=== PATIENT | male | born 1935 | race Caucasian/White ===

== ENCOUNTER 2016-11-21 12:46 | Inpatient (IN) | payer OTHER ==
[~2016-11-21] VITALS: Ht 167.6 cm; Wt 62.4 kg
--- NOTE | ~2016-11-21 | 2DMMODE ---
[facility] [place] [address] 2 D/M-MODE ECHOCARDIOGRAM Name: ARMANDARTEMIOPANDARyanILEANA REYNA Room #: 216-P [facility] IN M.R.#: [id number] Admission: 11/21/16 Attend Phys: Edenilson Weaver, Discharge: Date of : 35 Date of Service: 11/27/16 1118 Report #: [id number] THIS REPORT FOR: //name// APPROVED REPORT Study performed: 11/27/2016 08:53:00 EXAM: Comprehensive 2D, Doppler, and color-flow Echocardiogram Patient Location: Bedside Room #: 216 Blood Pressure: 134/71 mmHg HR: 78 bpm Other Information Study Quality: Excellent Indications Cardiomyopathy 2D Dimensions LVOT Diam: 24.44 (18-24mm) Aortic Valve AoV Peak Michael.: 2.63 m/s AO Peak Gr.: 27.74 mmHg LVOT Max P.97 mmHg AO Mean Gr.: 18.36 mmHg LVOT Mean P.11 mmHg LVOT Max V: 0.70 m/s AO V2 VTI: 55.02 cm LVOT Mean V: 0.50 m/s JR (VTI): 1.31 cm2 LVOT V1 VTI: 15.31 cm SV (LVOT): 71.83 mL Tricuspid Valve TR Peak Michael.: 4.27 m/s RAP Estimate: 5.00 mmHg TR Peak Gr.: 72.83 mmHg Left Ventricle The left ventricle is normal size. There is normal left ventricular wall thickness. Left ventricular ejection fraction is severely decreased. LVEF is 20-25%. Right Ventricle The right ventricle is normal size. The right ventricular systolic [facility] [address] [place] [address] 2 D/M-MODE ECHOCARDIOGRAM Name: ILEANA BERGER Room #: 216-P ADM IN .R.#: [id number] Admission: 11/21/16 Attend Phys: Edenilson Weaver, Discharge: Date of : 35 Date of Service: 11/27/16 1118 Report #: [id number] function is normal. Atria Left atrium is dilated. Right atrium is dilated. Aortic Valve The aortic valve is normal in structure. Aortic valve is calcified. moderate aortic stenosis. Mitral Valve The mitral valve is normal in structure. Tricuspid Valve The tricuspid valve is normal in structure. There is moderate tricuspid regurgitation. The right atrial pressure is estimated at 5 mmHg. There is severe pulmonary hypertension. The estimated PAP was 78 mmHg. Pulmonic Valve The pulmonary valve is normal in structure. There is no pulmonic valvular regurgitation. Great Vessels The aortic root is normal in size. IVC is normal in size and collapses >50% with inspiration. Pericardium There is no pericardial effusion. <Conclusion> The left ventricle is normal size. Left ventricular ejection fraction is severely decreased. LVEF is 20-25%. Left atrium is dilated. Right atrium is dilated. The aortic valve is normal in structure. Aortic valve is calcified. Moderate aortic stenosis. <ELECTRONICALLY SIGNED> By: Fabien Grey MD 11/27/16 1118 1118 1118 Fabien Grey MD /INF
--- NOTE | ~2016-11-21 | 2DMMODE ---
[facility] [address] [place] [address] 2 D/M-MODE ECHOCARDIOGRAM Name: ARMANDARTEMIOPANDARyanILEANA REYNA Room #: 211-P ADM IN M.R.#: [id number] Admission: 11/21/16 Attend Phys: Edenilson Weaver, Discharge: Date of : 35 Date of Service: 11/22/16 1320 Report #: [id number] THIS REPORT FOR: //name// APPROVED REPORT Study performed: 11/22/2016 08:09:50 EXAM: Comprehensive 2D, Doppler, and color-flow Echocardiogram Patient Location: Bedside Room #: 211 Blood Pressure: 131/87 mmHg HR: 103 bpm Other Information Study Quality: Excellent Indications COPD CAD Chest Pain Hypertension/HDD 2D Dimensions LVEF(%): 8.93 (>50%) IVSd: 18.43 (7-11mm) LVOT Diam: 20.00 (18-24mm) LVDd: 44.55 mm PWd: 13.95 (7-11mm) Ascending Aorta: 29.73 mm LVDs: 42.81 (25-40mm) Aortic Root: 33.07 mm Davenport's LVEF: 8.93 % Volumes Left Atrial Volume (Systole) Single Plane 4CH: 95.61 mL Single Plane 2CH: 83.48 mL Aortic Valve AoV Peak Michael.: 2.64 m/s AO Peak Gr.: 24.24 mmHg LV Max P.42 mmHg AO Mean Gr.: 18.95 mmHg LV Mean P.72 mmHg LV Max: 0.57 m/s AO V2 VTI: 455.46 mm LV Mean: 0.40 m/s JR (VTI): 0.62 cm2 LV V1 VTI: 89.24 mm AI Vmax: 3.22 m/s SV (LVOT): 28.09 mL [facility] [place] [address] 2 D/M-MODE ECHOCARDIOGRAM Name: ILEANA BERGER Room #: 211-P [facility] IN M.R.#: [id number] Admission: 11/21/16 Attend Phys: Edenilson Weaver, Discharge: Date of : 35 Date of Service: 11/22/16 1320 Report #: [id number] AI [place]: 2.90 m/s2 AI PHT: 322.60 ms Mitral Valve E/A Ratio: 2.8 MV Decel. Time: 121.82 ms MV E Max Michael.: 1.13 m/s MV A Michael.: 0.41 m/s MV PHT: 35.33 ms Pulmonary Valve PV Peak Michael.: 0.71 m/s PV Peak Gr.: 2.02 mmHg MO End Vmax: 1.19 m/s Pulmonary Vein P Vein S: 31.1 m/s P Vein D: 18.2 m/s P Vein A Dur.: 25.8 m/s PVa Duration: 73 Tricuspid Valve TR Peak Michael.: 3.76 m/s RAP Estimate: 15.00 mmHg TR Peak Gr.: 56.45 mmHg PA Pressure: 71.00 mmHg Left Ventricle Left ventricle is mildly dilated. Mild to moderate concentric left ventricular hypertrophy. Left ventricular systolic function is severely decreased. LVEF is 10-15%. Grade II - pseudonormal filling dynamics. Right Ventricle Right ventricle is moderately dilated. The right ventricular systolic function is normal. Atria Left atrium is severely dilated. Right atrium is moderately dilated. Aortic Valve Aortic valve leaflets are moderately thickened and calcified. Mild aortic regurgitation. Severe aortic stenosis. Mitral Valve There is mitral annular calcification. Mitral valve leaflets are thickened. Mild to moderate mitral regurgitation. No evidence of mitral valve stenosis. [facility] [address] [place] [address] 2 D/M-MODE ECHOCARDIOGRAM Name: ILEANA BERGER Room #: 211-P [facility] IN ..#: [id number] Admission: 11/21/16 Attend Phys: Edenilson Weaver, Discharge: Date of : 35 Date of Service: 11/22/16 1320 Report #: [id number] Tricuspid Valve The tricuspid valve is normal in structure. Severe tricuspid regurgitation. Pulmonic Valve The pulmonary valve is normal in structure. Mild to moderate pulmonic regurgitation. Great Vessels The aortic root is normal in size. The inferior vena cava is dilated with a decrease in inspiratory collapse. Pericardium There is no pericardial effusion. <Conclusion> Severe global left ventricular dysfunction, biatrial enlargement. LVEF is 10-15%. Right ventricle is moderately dilated. Aortic valve leaflets are moderately thickened and calcified. Mild aortic regurgitation. Severe aortic stenosis. Moderate mitral annular calcification. Mitral valve leaflets are thickened. Mild to moderate mitral regurgitation. Pulmonary artery pressure of 40mmHg. There is no pericardial effusion. <ELECTRONICALLY SIGNED> By: Kade Carson MD, FACC 11/22/16 1320 132 19 Kdae Carson MD, FACC /INF
--- NOTE | ~2016-11-21 | HC ---
[facility] [place] [place] [address] CONSULTATION Name: ILEANA BERGER Room #: 216-P ADM IN M.R.#: [id number] Admission: 11/21/16 Attend Phys: Edenilson Weaver MD, Discharge: Date of : 35 Report #: [id number] THIS REPORT FOR: //name// CC: Edenilson Weaver REASON FOR CONSULTATION: CKD. REASON FOR PRESENTATION: Systolic heart failure. HISTORY OF PRESENT ILLNESS: This is a nice 81-year-old with past medical history of chronic kidney disease with a baseline creatinine of around 1.5. He is known to have histoplasmosis and longstanding COPD. He is also known to have peripheral vascular disease with previous stent to his renal artery. He had been recently seen in [place], and evaluation showed that he had an ejection fraction of 10%. Back in 2013, he was evaluated by Dr. Weaver and he did not have much of coronary artery disease or impediment of his kidney function. He also had peripheral arterial disease with previous intervention. He had repeated episodes of GI bleeding. He also suffered from what seems to be gouty arthritis, for which he was prescribed some steroids, complicating his GI bleeding. Recently, he has been complaining of significantly increasing peripheral edema, PND, orthopnea and dyspnea on exertion. No syncopal episodes. He was admitted for further evaluation and management, where initial evaluation showed that he has chronic scarring on the chest x-ray. Troponins were mildly elevated on his presentation with a peak troponin of around 3.084. His BNP was reported to be around 37,575. I was consulted concerning his chronic kidney disease as his creatinine has been ____ steadily from 1.8 on presentation to 1.5. Reportedly his creatinine had been in the 2.1 range as of 2013. Prior to that, his creatinine had been 1.5 in 2010. PAST MEDICAL HISTORY: 1. Chronic kidney disease. 2. Coronary artery disease. 3. Peripheral arterial disease. 4. Bilateral superficial femoral artery and renal stents. 5. Aortic stenosis. 6. Chronic obstructive pulmonary disease. 7. Hypertension. 8. Hyperlipidemia. 9. Gout. 10. Histoplasmosis. 11. Status post TURP. SOCIAL HISTORY: Retired. 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 Remote history of 60+ pack year smoking. FAMILY HISTORY: Significant for coronary artery disease. [facility] [address] [place] [address] CONSULTATION Name: ILEANA BERGER Room #: 216-P [facility] IN .R.#: [id number] Admission: 11/21/16 Attend Phys: Edenilson Weaver MD, Discharge: Date of : 35 Report #: [id number] MEDICATIONS: 1. Mucomyst. 2. Aspirin. 3. Atorvastatin. 4. Xopenex. 5. Corlanor. 6. Metoprolol. 7. Pantoprazole. REVIEW OF SYSTEMS: GENERAL: Significant for weakness and weight loss. CARDIOVASCULAR: Significant for shortness of breath. PULMONARY: Shortness of breath and dyspnea on exertion. GASTROINTESTINAL: Loss of appetite. GENITOURINARY: Occasional frequency. PHYSICAL EXAMINATION: GENERAL: He is alert and oriented, maintaining O2 sats around 95% via nasal cannula. VITAL SIGNS: Blood pressure is 126/77. HEAD AND NECK: Elevated jugular venous pressure. CHEST: Decreased air entry bilaterally, crackles. CARDIOVASCULAR: Regular with an S4 gallop. ABDOMEN: Soft and nontender with no hepatosplenomegaly. LOWER EXTREMITIES: Edema +1. DATA: Laboratory values reviewed. Creatinine is 2. Hemoglobin is 11. Urine showed +2 protein. ASSESSMENT, IMPRESSION AND PLAN: 1. Acute kidney injury. 2. Chronic kidney disease. 3. Obstructive uropathy in the past. 4. Cardiomyopathy with an ejection fraction of 10%. 5. Coronary artery disease. 6. Hypertension. 7. Gastrointestinal bleeding. 8. Chronic obstructive pulmonary disease. 9. Histoplasmosis. 10. Discussed at length with Dr. Weaver. At this point, I would start the preparation for the cardiac cath with small bypass, low-dose bicarbonate drip as the patient is going for the cath tomorrow. 11. Hold on any ARB or angiotensin converting enzymes inhibitors for now. His chest x-ray is highly suggestive of chronic changes, and I would hold on any further diuretics for now. 12. Ultimately we will need further augmentation of his heart conditions with [address] [address] CONSULTATION Name: ILEANA BERGER Room #: 216-P ADM IN M.R.#: [id number] Admission: 11/21/16 Attend Phys: Edenilson Weaver MD, Discharge: Date of : 35 Report #: [id number] an CARYL or an ARB. 13. Blood pressure seems to be well controlled. 14. He has 400 mL of retained urine and Phan catheter was placed. 15. We will continue to follow along. <ELECTRONICALLY SIGNED> By: Jacy Power MD 11/28/16 1640 1817 2216 Jacy Power MD /nt
--- NOTE | ~2016-11-21 | HC ---
[facility] [place] [place] [address] CONSULTATION Name: ILEANA BERGER Room #: 211-P ADM IN M.R.#: [id number] Admission: 11/21/16 Attend Phys: Edenilson Weaver MD, Discharge: Date of : 35 Report #: [id number] THIS REPORT FOR: //name// CC: Edenilson Weaver DATE OF SERVICE: 11/21/2016 REASON FOR CONSULTATION: Hypoxia. IMPRESSION: 1. Hypoxia, question etiology. 2. Peripheral edema, question right heart failure. 3. Cardiomyopathy. 4. History of chronic kidney disease. 5. Anemia, question etiology. 6. Weight loss. PLAN: Workup with lab work; depending on kidney function, we will mildly diurese. We will check echo to look for pulmonary hypertension. He does have a history of histoplasmosis, may do a CT. The bases of the last CT suggests may be bronchiectasis, interstitial lung disease and may work this up also. HISTORY OF PRESENT ILLNESS: An 81-year-old male who relates has been feeling poorly over time and has lost weight. [place] like his legs were getting weaker, felt progressively short of breath, was admitted to the hospital and transfused and then after this is when he developed peripheral edema. He has been on and off diuretics now and has recently been started on oxygen. He complains of cough; however, no sputum production. No fever, chills or night sweats. PAST MEDICAL HISTORY: Per chart of [facility] in [place], showed history of hypertension, diastolic dysfunction, COPD, BPH, peripheral arterial disease, B12 deficiency, iron deficiency. PAST SURGICAL HISTORY: Include a TURP, cataract, multiple stents in leg, appendectomy, he had a colonoscopy in October 2014, showing diverticulosis. PRIOR MEDICATIONS: Include Lumigan, Ventolin, albuterol, MiraLax, Spiriva, tramadol, allopurinol, ferrous sulfate, Lasix, Protonix, and he was on Zithromax. ALLERGIES: YESI-DUR. FAMILY HISTORY: Positive for coronary disease. SOCIAL HISTORY: Positive for tobacco use. Social ETOH. [facility] [address] [place] [address] CONSULTATION Name: ARMANDFAVIOLAILEANA REYNA Room #: 211-P [facility] IN M.R.#: [id number] Admission: 11/21/16 Attend Phys: Edenilson Weaver MD, Discharge: Date of : 35 Report #: [id number] PHYSICAL EXAMINATION: VITAL SIGNS: Temperature 98.1, pulse 109, BP 145/92, sat 99%. LUNGS: Decreased breath sounds at the bases. CARDIOVASCULAR: Regular with murmur. ABDOMEN: Bowel sounds present. EXTREMITIES: Showed positive edema, no cyanosis. NEUROLOGIC: Alert, oriented. LABORATORY DATA: Pending. Spirometry from 2011 showed FVC of 3.02, 77% predicted, FEV1 of 1.7, 58% predicted. His hemoglobin at that time was 13.4, MCV of 91, creatinine 1.7. Fungal serology showed positive for histo. Chest x-ray from [place] showed stable chronic elevation, right hemidiaphragm, stable enlargement of the central hilar structures, atherosclerotic disease, stable right upper lobe nodularity, small effusions. We will follow closely with you. <ELECTRONICALLY SIGNED> By: Saurabh Mcclain MD 11/23/16 0548 1814 2303 Saurabh Mcclain MD /nt
--- NOTE | ~2016-11-21 | H ---
[facility] [place] [place] [address] HISTORY AND PHYSICAL Name: ILEANA BERGER Room #: 211-P ADM IN M.R.#: [id number] Admission: 11/21/16 Attend Phys: Edenilson Weaver MD, Discharge: Date of : 35 Report #: [id number] THIS REPORT FOR: //name// CC: Magda Weaver DATE OF SERVICE: 11/21/2016 HISTORY OF PRESENT ILLNESS: The patient is an 81-year-old male. He is admitted here with acute systolic heart failure and a recent finding of a severely depressed ejection fraction reported for 10%. This was performed up in [place] at [facility]. He has a history of mild coronary disease, significant peripheral vascular disease, longstanding COPD and histoplasmosis. Followed by Pulmonary physicians here previously, Dr. Mendez and then more recently in [place], [place]. He has been compliant with his medications. I was in discussion with his home town physician when the echo was obtained and it suggested that there was significant demise of global LV dysfunction, EF 10% range, I did not get a report of a pulmonary, but I think this was a preliminary report and the formal report is not obtainable, although they did come down with a disk of this echo which I have not been able to evaluate. He had been in marginal state of health with significant weight loss over the last 1 to 2 years, but had been doing well until he had stopped his PPI and suffered a gastritis or apparently a GI bleed where he had bled down to a hemoglobin of approximately 6.5. This was a couple of weeks ago. He was admitted for 2 days in [place], [place] and transfused and sent home. Reports of more recent hemoglobin of 11. But since that time he has had peripheral edema, dyspnea, orthopnea, PND, unable to lay flat. A copy of their EKG suggests an anterior infarct with ST abnormality, sinus rhythm is maintained. Rates had been around 100-110. He has been not hypotensive or at least not syncopal. He has very little reserve, cannot walk 50 feet. Edema, that was treated with some Lasix 2 doses, last of which was last night. In addition, he is on Protonix; Carafate was stopped, Spiriva inhaler, albuterol, MiraLax and Ventolin, Lumigan eye drops and Zithromax. ALLERGIES: YESI-DUR. PAST MEDICAL HISTORY: Positive for coronary artery disease with bilateral SFA and renal stents placed in 2012. There was moderate restenosis when we looked in 2014. Mild aortic valve stenosis at 1.5 at that setting, COPD with histoplasmosis, hypertension, hypercholesterolemia, DJD, tobacco use. Also had an obstructive uropathy with acute renal failure back in 2013 and was actually seen here at [place] for that. Laboratory work is pending. FAMILY HISTORY: He has had a brother who from an infarct at 49, father at 65 from coronary disease. 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 REVIEW OF SYSTEMS: Essentially negative except for this progressive fatigue, dyspnea and some hesitancy. PHYSICAL EXAMINATION: GENERAL: He appears to have lost a significant amount of weight. He is mildly dyspneic at rest, pulse is 99 and regular. Blood pressure 144/90. HEENT: Eyes reveal xanthelasmas. Pharynx is clear. NECK: Shows preserved upstrokes without JVD or bruits. There is a question of JVD mildly elevated. LUNGS: Markedly prolonged expiratory phase. CARDIOVASCULAR: Distant heart tones, S1, S2, borderline tachycardic. There is a systolic ejection murmur upper right sternal border. ABDOMEN: Slightly protuberant, nontender. There is a questionable of liver edge palpable. Plus minus some hepatojugular reflux. EXTREMITIES: Reveal 1-2+ edema. Distal pulses I cannot palpate, femoral pulses are noted. NEUROLOGIC: Intact. MUSCULOSKELETAL: Generalized arthritic changes. SKIN: Warm and dry without xanthoma or ulcer. ASSESSMENT: 1. Acute systolic failure with reported ejection fraction 10% of unclear etiology. 2. Suspect significant pulmonary hypertension, cor pulmonale, possible some etiology for left-sided failure. 3. History of mild aortic valve stenosis, will need to reevaluate and obtain echo report and/or repeat echo. 4. Hypertension by history. 5. Hypercholesterolemia. 6. Peripheral vascular disease with prior superficial femoral artery and renal stents 2012. 7. History of prior benign prostatic hypertrophy with obstructive uropathy, which has not recurred since 2013. RECOMMENDATIONS AND PLAN: Pulmonary input, CBC, chemistry, CMP, BNP, TSH; once could certainly consider lower extremity Doppler. I would like pulmonary input. Would add IV Lasix. Chest x-ray, EKG, pulmonary consult, we will review the echo disc, possibly repeat. Also, a component of aortic valve stenosis, this could have worsened. Seems that certainly got worse after the transfusion and the GI bleed, which was approximately 3 weeks ago. I have discussed the above with his primary physician in [place]. [facility] [address] [place] [address] HISTORY AND PHYSICAL Name: ILEANA BERGER Room #: 211-P ADM IN M.R.#: [id number] Admission: 11/21/16 Attend Phys: Edenilson Weaver MD, Discharge: Date of : 35 Report #: [id number] Thank you for asking us to assist in the care of this patient. <ELECTRONICALLY SIGNED> By: Edenilson Weaver MD, FACC 11/23/16 0815 1806 191 Edenilson Weaver MD, FACC /nt
--- NOTE | ~2016-11-21 | EKG ---
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 : 1935 Requested By: Edenilson Weaver Order Number: [id number] MD: Kade Carson Measurements Intervals [place] Rate: 93 P: 5 CA: 135 QRS: -44 QRSD: 95 T: 87 QT: 351 QTc: 437 Interpretive Statements Sinus rhythm Left atrial enlargement Left anterior hemiblock Poor R-wave progression T-wave abnormality No previous ECG available for comparison Electronically Signed On 11-23-2016 9:07:04 CDT by Kade Carson [email or web address] <ELECTRONICALLY SIGNED> By: Kade Carson MD, [facility] 11/23/16906 08 2 Kade Carson MD, [facility] /EPI
--- NOTE | ~2016-11-21 | D ---
[facility] [place] [address] DISCHARGE SUMMARY Name: ILEANA BERGER Room #: 216-P [facility] IN M.R.#: [id number] Admission: 11/21/16 Attend Phys: Edenilson Weaver MD, Discharge: 11/29/16 Date of : 35 Report #: [id number] THIS REPORT FOR: //name// CC: 5 [facility] Dr. Berny Weaver [facility] COURSE: The patient is an 81-year-old male who was admitted with acute systolic failure and acute renal failure with significant underlying COPD issues. The patient had failure to thrive, hypotension, increasing creatinine and volume overloaded. Nephrology and pulmonary consults were obtained. It looks like there was a significant demise in his LV function, which was relatively normal 3 years ago, with a calculated valve area with aortic stenosis at 1.5, which was mild. The repeat echo here revealed a valve area initially of 0.8 with an ejection fraction of 15% to 20%. He was initially attempted to be diuresed, but then worsened his acute renal failure on chronic kidney disease. We backed off. He was borderline tachycardic and blood pressure was maintained. I started Corlanor at low dose, 2.5 mg b.i.d. This significantly did help the heart rate and appeared to benefit the hemodynamics. He then was diuresed. Creatinine had risen to 3. Once this fell slightly, we restarted Lasix at 20 b.i.d. with low-dose renal dose dopamine for 3 days at 2.5 mcg. He did improve, finally did open up and I was able to diurese a significant amount. Weight is down 6-7 pounds. Nutrition is still an issue. The repeat abbreviated echo revealed an EF had improved slightly 20% to 25% and the valve calculated lest was still severe, but probably looked to be 1.0 to 1.1 cm2, which is probably more true. He has had certainly significant underlying debility and COPD, but is able to at least get up in the room and in the gonzalez with the assistance. He is felt to be a candidate for [address] [place] [address] inpatient rehab. PT and OT have been working with him. He has maintained. His weight has required oxygen at 2 liters. H was 10.7 and 35.3 and white count 11.4. Last BUN and creatinine were 47 and 2.0. His baseline creatinine is presumably 1.5 to 1.8. Chest x-ray did show some slight basilar infiltrate on 11/26, but no acute failure. He will be discharged to [address] [place] [address] on his allopurinol; ipratropium bromide; albuterol; tramadol p.r.n. and ophthalmic ointment or a neomycin polymyxin, that will be p.r.n. for his meatus. He had meatal structure and had to have a Phan catheter placed by urology. Lasix 20 b.i.d. and Bystolic is 5 mg every day, utilizing the more selective beta elizabeth with vasodilatory properties. Enoxaparin continue at prophylactic dose 30 mg at bedtime, Protonix 20, iron 325, Lipitor 40 and baby aspirin. We will advance diet, need to increase protein. Lasix IV has now been switched to torsemide orally 20 mg b.i.d. Nebivolol is 5 mg a day. Metoprolol tartrate has been discontinued. DISCHARGE DIAGNOSES: 1. Acute systolic heart failure. 2. Acute kidney insufficiency on chronic kidney disease. 3. 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 [facility] [address] [place] [address] DISCHARGE SUMMARY Name: ILEANA BERGER Room #: 216-P DIS IN M.R.#: [id number] Admission: 11/21/16 Attend Phys: Edenilson Weaver MD, Discharge: 11/29/16 Date of : 35 Report #: [id number] 4. Ischemic idiopathic and valvular cardiomyopathy. 5. Hypercholesterolemia. RECOMMENDATIONS AND PLAN: Should also note a nuclear stress test was performed, suggested a smaller inferior defect, although this has not been known by history. Ejection fraction improved to 25% by nuclear exam and no evidence of significant ischemia. I suspect that this LV demise is multifactorial and certainly aortic stenosis is playing a role. It does not appear that this is significant underlying ischemia and I would not favor contrast at this time with regards to delineate the coronary anatomy. He has had no complaints of chest pain or pressure. No syncope or presyncope. He is clear to participate in inpatient [address] [place] [address] cardiac rehabilitation. We will follow up there. <ELECTRONICALLY SIGNED> By: Edenilson Weaver MD, FACC 12/01/16 0921 1028 1238 Edenilson Weaver MD, FACC /nt
--- NOTE | ~2016-11-21 | HC ---
[facility] [place] [address] CONSULTATION Name: ILEANA BERGER Room #: 216-P [facility] IN M.R.#: [id number] Admission: 11/21/16 Attend Phys: Edenilson Weaver MD, Discharge: 11/29/16 Date of : 35 Report #: [id number] THIS REPORT FOR: //name// CC: Edenilson Weaver DATE OF SERVICE: 11/26/2016 HISTORY OF PRESENT ILLNESS: The patient is an 81-year-old white male who is from [place], [place]. He has a history of acute systolic heart failure with recent findings at an outside facility of a severely depressed ejection fraction reported at 10%. He has a history of mild coronary artery disease, significant peripheral vascular disease, longstanding COPD and histoplasmosis. He is followed with physicians both in [place], [place] as well as [place] and also with physicians here in [place] where he has family. He has had significant weight loss over the last 1-2 years, but had been doing well until he stopped his PPI and suffered gastritis or apparently a GI bleed where he bled down to a hemoglobin of approximately 6.5. This occurred approximately 2 weeks prior to the current admission. He was admitted for a couple of days in [place], [place], transfused, discharged home. He had a more recent hemoglobin of 11. Since that time, however, he has had worsening lower extremity edema, increased shortness of breath, paroxysmal nocturnal dyspnea. EKG showed ST abnormality, anteriorly. Some hypotension. Decreased reserve with functional mobility. He was readmitted at this time to [facility]. He has been followed closely by Cardiology and Pulmonary Medicine as well as Nephrology. He has been diagnosed with a non-ST elevation AR, possible ischemic and valvular cardiomyopathy. Echocardiogram was performed which revealed a left ventricular ejection fraction of 15%-20% and severe aortic stenosis. Creatinine is still elevated, although it has come down from 3 to 2.3. Pulmonary is following regarding his significant pulmonary hypertension. He does have generalized weakness and debilitation along with his multiple medical comorbidities and is now being seen in rehabilitation medicine consultation. PAST MEDICAL HISTORY: Includes coronary artery disease with bilateral superficial femoral artery and renal stent placement in 2012, moderate restenosis in 2014, mild aortic valve stenosis, COPD with histoplasmosis, hypertension, hypercholesterolemia, degenerative arthritis. He has obstructive uropathy with acute renal failure back in 2013. ALLERGIES: YESI-DUR. FAMILY HISTORY: Brother from infarct at 49, father at 65 from coronary artery disease. 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 [facility] [address] [place] [address] CONSULTATION Name: ARMANDFAVIOLAILEANA AXEL Room #: 216-P DIS IN M.R.#: [id number] Admission: 11/21/16 Attend Phys: Edenilson Weaver MD, Discharge: 11/29/16 Date of : 35 Report #: [id number] REVIEW OF SYSTEMS: He has had some confusion noted, which the thinks is due to the medications. He has been restless. Notes he has had difficulty sleeping, which has been going on for months and predating the current hospitalization. He did have some Ambien which has been discontinued. No focal extremity pain complaints were verbalized; no problems with voiding have been noted. PHYSICAL EXAMINATION: Thin, 81-year-old white male in no obvious distress. Last recorded temperature 98.5, pulse 80, respirations 18, blood pressure is 128/73. The patient is alert. There is some latency to his responses and he tends to defer to his . He can follow basic 1 step commands. He appears somewhat restless and will try to get up and move around in bed. His facies are symmetric. He has functional range of motion of both upper extremities. Strength is grade 4-/5 to 4/5. DTRs are trace to 1 in his lower extremities. There is no focal calf swelling. Functional range of motion with strength grade 4/5. DTRs are trace to 1. He is contact guard assistance for sit to stand and is min assistance for ambulating without a device. He needs min assist for safety. Tends to fatigue fairly quickly. IMPRESSION: An 81-year-old white male with the following problem list: 1. Medical complexity with generalized debilitation. 2. Non-ST elevation myocardial infarction. 3. 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 4. Left ventricular ejection fraction 15%-20%. 5. Severe aortic stenosis. 6. Acute systolic failure. 7. Significant pulmonary hypertension. 8. Acute renal insufficiency superimposed on chronic kidney disease. Creatinine has decreased from 3 down to 2.3. 9. Hypertension. 10. Hypercholesterolemia. 11. Peripheral vascular disease. 12. Malnutrition. Encouraging supplements. 13. Insomnia. This has predated the patient's admission. 14. Safety issues. He tends to be restless and confused at times, will try to get up on his own. The therapist notes that he does need assistance for safety issues. PLAN: The patient is a candidate and would benefit from an acute in-hospital inpatient rehabilitation stay. From a preadmission screening perspective: 1. Prior level of function is well delineated above. 2. Expect level of improvement would be for the patient to become modified independent with transfers, mobility and ADLs as well as further improvement as far as cognitive issues, so that he can return back to the home setting. Would anticipate length of stay of probably 7-10 days, potentially longer if needed [facility] [address] [place] [address] CONSULTATION Name: ILEANA BERGER Room #: 216-P DIS IN M.R.#: [id number] Admission: 11/21/16 Attend Phys: Edenilson Weaver MD, Discharge: 11/29/16 Date of : 35 Report #: [id number] pending progress. 3. Evaluation of the patient's risk for clinical complications. He does have the multiple medical comorbidities as noted above. 4. Condition that caused the need for rehabilitation would be the medical complexity with generalized debilitation. 5. Treatments needed would include PT, OT and speech 1 hour per day each 5 days a week throughout the duration of the acute inpatient rehabilitation stay. 6. Anticipated discharge destination would be back to the home setting. 7. Would anticipate either home health care versus outpatient once ready for discharge. 8. The patient meets diagnostic criteria for an acute in-hospital inpatient rehabilitation stay. He meets medical necessity criteria and has multiple medical record consultant physicians that are following with him including Cardiology, Pulmonary Medicine as well as Nephrology. These physicians could continue to follow along with him during the rehab stay. The patient has the tolerance for an acute in-hospital inpatient rehabilitation stay and has appropriate discharge goals back to the home setting. ADDENDUM: Discussed with the [address] [place] [address] rehab staff. Would like to have the patient admitted to a rehabilitation bed that is across from the nurse station. Would like to have nursing staff be able to keep a close eye on the patient with the safety issues noted above. Discussed safety issues with the patient and and encouraged him to continue to ask for assistance prior to getting up. We will be glad to follow along with you regarding transferring up to the acute inpatient rehabilitation mcdaniel. <ELECTRONICALLY SIGNED> By: James Stover MD 12/01/16 1523 1100 1958 James Stover MD /nt
--- NOTE | ~2016-11-21 | EKG ---
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 : 1935 Requested By: Saurabh Mcclain Order Number: [id number] MD: Kade Carson Measurements Intervals [place] Rate: 99 P: -22 PA: 138 QRS: -43 QRSD: 99 T: QT: 364 QTc: 468 Interpretive Statements Sinus rhythm Left atrial enlargement Left ventricular hypertrophy Poor R-wave progression T-wave abnormality, consider lateral ischemia Baseline wander in lead(s) V1 No previous ECG available for comparison Electronically Signed On 11-22-2016 15:09:04 CDT by Kade Carson [email or web address] <ELECTRONICALLY SIGNED> By: Kade Carson MD, FACC 11/22/16 1509 1804 1804 Kade Carson MD, [facility] /EPI
--- NOTE | ~2016-11-21 | EKG ---
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: vAni RICHARDSON : 1935 Requested By: Edenilson Weaver Order Number: [id number] MD: Kade Carson Measurements Intervals [place] Rate: 76 P: 72 SD: 128 QRS: -40 QRSD: 113 T: 144 QT: 388 QTc: 437 Interpretive Statements Sinus rhythm Left atrial enlargement Left anterior fascicular block LVH with secondary repolarization abnormality Baseline wander in lead(s) I,III,aVL Compared to ECG 11/22/2016 08:03:25 no significant change was found Electronically Signed On 11-24-2016 9:00:44 CDT by Kade Carson [email or web address] <ELECTRONICALLY SIGNED> By: Kade Carson MD, [facility] 11/24/1600 30 30 Kade Carson MD, FAC /EPI
[~2016-11-21 12:46] MED LIST: ACETAMINOPHEN650 M5 PO; AZOR 5-20 MG T1 EACH; AZOR 5-20 MG T1 EACH PO; BETHANECHOL 5MG5 MG PO; COMBIVENT INH; CRESTOR10 MG; RAPAFLO8 MG; RAPAFLO8 MG PO; SPIRIVA
[2016-11-21 17:57] VITALS: BP 145/92
[2016-11-21 17:59] VITALS: BP 145/92
[2016-11-21 18:50] LABS: HEMATOCRIT 37.8 % (42.0-52.0); HEMOGLOBIN 11.6 gm/dL (14.0-18.0); MCH 23.2 pg (26.0-34.0); MCHC 30.7 g/dL (28.0-37.0); MCV 75.5 fL (80.0-100.0); PLATELET COUNT 411 thou/uL (150-400); RBC 5.01 mil/uL (4.50-6.00); RDW 26.8 % (10.5-14.5); WBC 10.3 thou/uL (4.0-11.0)
[2016-11-21 18:54] LABS: MANUAL DIFF YES
[2016-11-21 19:10] LABS: CALCIUM 8.3 mg/dL (8.5-10.1); CREATININE 1.8 mg/dL (0.7-1.3); TOTAL BILIRUBIN 0.7 mg/dL (<0.1-1.0); TOTAL PROTEIN 7.1 g/dL (6.4-8.2)
[2016-11-21 19:12] LABS: URIC ACID* 6.2 mg/dL (2.6-7.2)
[2016-11-21 19:19] LABS: POTASSIUM 2.8 mmol/L (3.5-5.1); TROPONIN-I 3.84 ng/mL (<0.04-0.07)
[2016-11-21 20:04] LABS: URINE BILIRUBIN NEGATIVE (Negative); URINE BLOOD NEGATIVE (Negative); URINE COLOR YELLOW; URINE GLUCOSE-RANDOM* NEGATIVE (Negative); URINE KETONES NEGATIVE (Negative); URINE LEUKOCYTES-REFLEX NEGATIVE (Negative); URINE PROTEIN (DIPSTICK) 2+ (Negative); URINE SPECIFIC GRAVITY 1.025 (1.003-1.035); URINE UROBILINOGEN 0.2 E.U./dl (0.2-1.0)
[2016-11-21 20:26] LABS: HYALINE CASTS 0-3 Few /LPF (None Seen); SQUAMOUS 0-3 Few /LPF (0-3)
[2016-11-21 20:29] LABS: CRYSTALS None Seen /LPF (None Seen); URINE RBC None Seen /HPF (0-2); URINE WBC-REFLEX 0-5 Rare /HPF (0-5)
[2016-11-21 20:32] VITALS: BP 137/91
[2016-11-21 21:17] LABS: ABSOLUTE NEUTROPHILS 7.4 thou/uL (1.4-8.2); TOTAL CELL COUNT 100
[2016-11-21 21:18] LABS: ANISOCYTOSIS 3+; HYPOCHROMASIA 3+; MICROCYTES 3+; OVALOCYTES 1+
[2016-11-21 21:43] LABS: ABG SAMPLE TYPE ARTERIAL; HCO3 29.7 mmol/L (22.0-26.0); LACTATE 1.75 mmol/L (0.5-2.0); O2(CT) 15.7 mL/dL (15.0-23.0); O2Hb 94.8 % (92.0-98.0); PCO2 44.2 mmHg (35.0-45.0); PO2 89.4 mmHg (80.0-100.0); STICK SITE R.BRACHIAL; pH 7.445 (7.360-7.450); sO2 97.1 % (92.0-98.0)
[2016-11-21 21:44] LABS: ABG COMMENT 2L O2 ON X 40MIN.
[2016-11-21 23:55] VITALS: BP 119/78
[2016-11-22 04:23] VITALS: BP 117/77
[2016-11-22 06:17] LABS: HEMATOCRIT 35.9 % (42.0-52.0); HEMOGLOBIN 11.3 gm/dL (14.0-18.0); MCH 23.5 pg (26.0-34.0); MCHC 31.4 g/dL (28.0-37.0); MCV 74.9 fL (80.0-100.0); RBC 4.8 mil/uL (4.50-6.00); RDW 27.4 % (10.5-14.5); WBC 8.1 thou/uL (4.0-11.0)
[2016-11-22 06:19] LABS: % SATURATION 7 % (20-39); IRON 24 ug/dL (65-175); TIBC 332 ug/dL (250-450); UIBC 308 ug/dL
[2016-11-22 06:21] LABS: ALBUMIN 2.8 g/dL (3.4-5.0); CALCIUM 8.6 mg/dL (8.5-10.1); MAGNESIUM 1.6 mg/dL (1.8-2.4); TOTAL BILIRUBIN 1.2 mg/dL (<0.1-1.0); TOTAL PROTEIN 6.4 g/dL (6.4-8.2)
[2016-11-22 06:23] LABS: POTASSIUM 4.7 mmol/L (3.5-5.1); TROPONIN-I 3.08 ng/mL (<0.04-0.07)
[2016-11-22 07:41] VITALS: BP 131/87
[2016-11-22 10:55] VITALS: BP 126/77
[2016-11-22 19:45] VITALS: BP 125/83
[2016-11-22 23:45] VITALS: BP 126/80
[2016-11-23 03:21] VITALS: BP 118/76
[2016-11-23 03:30] LABS: HEMATOCRIT 37.3 % (42.0-52.0); HEMOGLOBIN 11.3 gm/dL (14.0-18.0); MCHC 30.2 g/dL (28.0-37.0); MCV 76.2 fL (80.0-100.0); RBC 4.9 mil/uL (4.50-6.00); RDW 26.5 % (10.5-14.5); WBC 9.1 thou/uL (4.0-11.0)
[2016-11-23 03:48] LABS: CALCIUM 8.9 mg/dL (8.5-10.1); CREATININE 2.6 mg/dL (0.7-1.3)
[2016-11-23 03:53] LABS: POTASSIUM 5.7 mmol/L (3.5-5.1)
[2016-11-23 07:55] VITALS: BP 128/66
[2016-11-23 10:55] VITALS: BP 120/79
[2016-11-23 16:06] VITALS: BP 128/77
[2016-11-23 18:25] VITALS: BP 129/81
[2016-11-23 20:21] VITALS: BP 127/73
[2016-11-24 04:27] LABS: CALCIUM 9.2 mg/dL (8.5-10.1); PHOSPHORUS 5.2 mg/dL (2.5-4.9); POTASSIUM 5.7 mmol/L (3.5-5.1)
[2016-11-24 04:50] VITALS: BP 123/70
[2016-11-24 07:50] VITALS: BP 142/84
[2016-11-24 10:45] LABS: URINE BILIRUBIN NEGATIVE (Negative); URINE BLOOD 1+ (Negative); URINE COLOR YELLOW; URINE GLUCOSE-RANDOM* NEGATIVE (Negative); URINE KETONES NEGATIVE (Negative); URINE NITRITE NEGATIVE (Negative); URINE PROTEIN (DIPSTICK) 1+ (Negative); URINE SPECIFIC GRAVITY 1.025 (1.003-1.035); URINE UROBILINOGEN 0.2 E.U./dl (0.2-1.0)
[2016-11-24 11:01] LABS: HYALINE CASTS 0-3 Few /LPF (None Seen); SQUAMOUS 0-3 Few /LPF (0-3); URINE WBC 0-5 Rare /HPF (0-5)
[2016-11-24 11:02] LABS: BACTERIA 1-9 Few /HPF (None Seen); CRYSTALS None Seen /LPF (None Seen); URINE RBC 3-10 Few /HPF (0-2)
[2016-11-24 13:59] LABS: SMEAR FOR EOSINOPHILS No Eosinophils Seen
[2016-11-24 16:44] VITALS: BP 139/91
[2016-11-24 20:00] VITALS: BP 122/68
[2016-11-24 22:06] LABS: URINE CREATININE-RANDOM* 89.3 mg/dL (Not Estab.)
[2016-11-25 01:00] VITALS: BP 118/62
[2016-11-25 04:55] VITALS: BP 101/61
[2016-11-25 07:15] VITALS: BP 123/65
[2016-11-25 07:15] LABS: ALBUMIN 2.7 g/dL (3.4-5.0); CALCIUM 8.5 mg/dL (8.5-10.1); CREATININE 2.7 mg/dL (0.7-1.3); PHOSPHORUS 4.2 mg/dL (2.5-4.9); POTASSIUM 5.3 mmol/L (3.5-5.1)
[2016-11-25 11:10] VITALS: BP 112/59
[2016-11-25 16:20] VITALS: BP 108/50
[2016-11-25 20:19] VITALS: BP 127/62
[2016-11-26 00:04] VITALS: BP 125/58
[2016-11-26 02:59] VITALS: BP 139/64
[2016-11-26 04:05] LABS: ALBUMIN 2.5 g/dL (3.4-5.0); CALCIUM 8.1 mg/dL (8.5-10.1); CREATININE 2.3 mg/dL (0.7-1.3)
[2016-11-26 04:23] LABS: POTASSIUM 3.8 mmol/L (3.5-5.1)
[2016-11-26 07:45] VITALS: BP 128/73
[2016-11-26 11:50] VITALS: BP 122/66
[2016-11-26 13:25] VITALS: BP 133/58
[2016-11-26 19:33] VITALS: BP 134/65
[2016-11-27 03:51] VITALS: BP 134/71
[2016-11-27 03:57] LABS: ALBUMIN 2.6 g/dL (3.4-5.0); CALCIUM 8.2 mg/dL (8.5-10.1); PHOSPHORUS 3.1 mg/dL (2.5-4.9); POTASSIUM 3.6 mmol/L (3.5-5.1)
[2016-11-27 04:23] LABS: HEMATOCRIT 35.3 % (42.0-52.0); HEMOGLOBIN 10.7 gm/dL (14.0-18.0); MCH 22.8 pg (26.0-34.0); MCHC 30.5 g/dL (28.0-37.0); MCV 74.8 fL (80.0-100.0); PLATELET COUNT 286 thou/uL (150-400); RBC 4.71 mil/uL (4.50-6.00); RDW 26.4 % (10.5-14.5); WBC 11.4 thou/uL (4.0-11.0)
[2016-11-27 04:25] LABS: MANUAL DIFF YES
[2016-11-27 05:31] LABS: ABSOLUTE NEUTROPHILS 8.1 thou/uL (1.4-8.2); ANISOCYTOSIS 4+; LARGE PLATELETS OCCASIONAL; TOTAL CELL COUNT 100
[2016-11-27 05:32] LABS: HYPOCHROMASIA 2+; MACROCYTES 1+; POLYCHROMASIA OCCASIONAL
[2016-11-27 05:33] LABS: MICROCYTES 2+
[2016-11-27 07:55] VITALS: BP 162/83
[2016-11-27 11:30] VITALS: BP 139/77
[2016-11-27 16:00] VITALS: BP 140/70
[2016-11-27 19:55] VITALS: BP 162/72
[2016-11-28 03:31] LABS: ALBUMIN 2.7 g/dL (3.4-5.0); CALCIUM 8.1 mg/dL (8.5-10.1); PHOSPHORUS 3.2 mg/dL (2.5-4.9); POTASSIUM 4.4 mmol/L (3.5-5.1)
[2016-11-28 05:17] VITALS: BP 139/70
[2016-11-28 07:30] VITALS: BP 141/92
[2016-11-28 11:50] VITALS: BP 126/69
[2016-11-28 16:20] VITALS: BP 140/73
[2016-11-28 19:24] VITALS: BP 149/96
[2016-11-29 04:17] VITALS: BP 148/79
[2016-11-29 07:30] VITALS: BP 140/87
[2016-11-29] MEDS ORDERED: DEMADEX20 MG PO (09:01)
[2016-11-29] MEDS ORDERED: ASPIR 8181 MG PO (09:01)
[2016-11-29] MEDS ORDERED: IRON325 PO (09:01)
[2016-11-29] MEDS ORDERED: ATORVASTATIN CA40 MG PO (09:01)
[2016-11-29] MEDS ORDERED: MIRALAX17 GM PO (09:02)
[2016-11-29] MEDS ORDERED: ALLOPURINOL 30300 M2 PO (09:02)
[2016-11-29] MEDS ORDERED: CORLANOR5 MG PO (09:02)
[2016-11-29] MEDS ORDERED: XOPENEX 0.63 MG/3 M1 INH ×2 (09:02→09:03)
[2016-11-29] MEDS ORDERED: BYSTOLIC 5 MG5 M1 PO (09:02)
[2016-11-29] MEDS ORDERED: PROTONIX 20 MG20 M1 PO (09:02)
[2016-11-29] MEDS ORDERED: TRAMADOL 50 MG50 MG PO (09:02)
[2016-11-29] MEDS ORDERED: MUCINEX TA600 MG/TA2 PO (09:03)
[2016-11-29] MEDS ORDERED: ATROVENT HFA14 GM INH (09:03)
[2016-11-29] MEDS ORDERED: ROBITUSSIN100 MG/53 PO (09:04)
[2016-11-29] MEDS ORDERED: APAP500 PO (09:05)
== END 2016-11-29 11:00 | DRG 682 ==
LOC: 2N 12:46
PROVIDERS: Hospitalist; Internal Medicine Cardiovascular Disease; Internal Medicine Pulmonary Disease
DX: N17.9 Acute kidney failure, unspecified (principal); I50.21 Acute systolic (congestive) heart failure; I13.0 Hypertensive heart and chronic kidney disease with heart failure and stage 1 through stage 4 chronic kidney disease, or unspecified chronic kidney disease; I42.9 Cardiomyopathy, unspecified; K92.2 Gastrointestinal hemorrhage, unspecified; J90 Pleural effusion, not elsewhere classified; E46 Unspecified protein-calorie malnutrition; I27.2 Other secondary pulmonary hypertension; I25.10 Atherosclerotic heart disease of native coronary artery without angina pectoris; I73.9 Peripheral vascular disease, unspecified; I35.0 Nonrheumatic aortic (valve) stenosis; N18.9 Chronic kidney disease, unspecified; I50.9 Heart failure, unspecified; J44.9 Chronic obstructive pulmonary disease, unspecified; E78.5 Hyperlipidemia, unspecified; M10.9 Gout, unspecified; D64.9 Anemia, unspecified; N40.0 Benign prostatic hyperplasia without lower urinary tract symptoms; B39.9 Histoplasmosis, unspecified; M19.90 Unspecified osteoarthritis, unspecified site; E87.5 Hyperkalemia; E78.00 Pure hypercholesterolemia, unspecified; G47.00 Insomnia, unspecified; Z68.22 Body mass index [BMI] 22.0-22.9, adult; Z79.899 Other long term (current) drug therapy; Z95.820 Peripheral vascular angioplasty status with implants and grafts; Z87.891 Personal history of nicotine dependence; Z82.49 Family history of ischemic heart disease and other diseases of the circulatory system; Z88.8 Allergy status to other drugs, medicaments and biological substances; Z79.82 Long term (current) use of aspirin
CPT/HCPCS: 10081; 10797

== ENCOUNTER 2016-11-29 10:33 | Inpatient (IN) | payer OTHER ==
[~2016-11-29] VITALS: Ht 167.6 cm; Wt 52.1 kg
--- NOTE | ~2016-11-29 | PLAN ---
[facility] [place] [address] REHAB UNIT PLAN OF CARE Name: ILEANA BERGER Room #: 501-A [facility] IN M.R.#: [id number] Admission: 11/29/16 Attend Phys: James Stover MD Discharge: 12/07/16 Date of : 35 Report #: [id number] THIS REPORT FOR: //name// CC: James Pyle Meg HISTORY OF PRESENT ILLNESS: The patient is seen back today in followup. He is in no distress. Temperature is 98.2, pulse 62, respirations 16, blood pressure 111/47. He has been moved into the transitional living apartment. He is working in therapies with transfers, contact guard assistance. Gait is 100 feet and almost 500 feet without a device with contact guard assistance. He did go up and down 12 steps with standby assistance. He has been on 2 liters nasal prong O2 and trial was underway to try to wean him. In occupational therapy, we are working on endurance. He is standby assistance for basic dressing activities. Speech therapy is following him as well. He does have functional comprehension. We are encouraging him to increase his p.o. intake and improve his nutrition. Dietary has been consulted. ASSESSMENT: 1. Medical complexity with generalized debilitation. 2. Non-ST elevation myocardial infarction. 3. 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 4. Left ventricular ejection fraction 15-20%. 5. Severe aortic stenosis. 6. Acute systolic heart failure. 7. Significant pulmonary hypertension. 8. Acute renal insufficiency superimposed on chronic kidney disease. 9. Hypertension. 10. Hypercholesterolemia. 11. Peripheral vascular disease. 12. Malnutrition. 13. Insomnia. PLAN: The overall plan of care is based on the preadmission screen, post-admission physician evaluation and information garnered from therapy assessments. 1. Estimated length of stay should be fairly short. Anticipating discharge probably Wednesday or Wednesday. 2. Medical prognosis is overall good. 3. Anticipated interventions includes the interdisciplinary acute inpatient rehabilitation program with PT and OT working with him, speech therapy is seeing him as well, rehab nursing assisting regarding medication management, skin care prophylaxis, bowel and bladder issues and nursing education. Case management is involved as well as the agriculture consultant physicians. 4. Anticipated functional outcomes would be for the patient to become modified [address] [address] REHAB UNIT PLAN OF CARE Name: ILEANA BERGER Room #: 501-A [facility] IN [facility].#: [id number] Admission: 11/29/16 Attend Phys: James Stover MD Discharge: 12/07/16 Date of : 35 Report #: [id number] independent with transfers, mobility, ADLs, cognition to further improve as far as his endurance to improve from a nutritional perspective and to be at an overall higher functional level, so that he can return back to the home setting. 5. Discharge destination will be back home with . He may return back to the home setting here in the [place] area with local family first. 6. Expected therapy by discipline includes PT and OT 1-1/2 hours per day. He is currently getting some speech therapy approximately one-half to 1 hour per day. The goal is for him to receive a full 3 hours per day, 5 days a week of acute rehabilitation therapies to maximize his functional independence to get him back to the home setting. <ELECTRONICALLY SIGNED> By: James Stover MD 12/09/16 1528 1224 2352 James Stover MD /nt
--- NOTE | ~2016-11-29 | HC ---
[facility] [place] [address] [address] CONSULTATION Name: ILEANA BERGER Room #: 501-A ADM IN M.R.#: [id number] Admission: 11/29/16 Attend Phys: James Stover MD Discharge: Date of : 35 Report #: [id number] THIS REPORT FOR: //name// CC: James Weaver DATE OF SERVICE: 12/04/2016 NEUROBEHAVIORAL STATUS EXAM ATTENDING PHYSICIAN: James Stover M.D. [employer]IDE [employer] GROWER: Arpan Longoria, PhD CLINICAL PRESENTATION: The patient is an 81-year-old male admitted to the rehabilitation unit of [facility] for comprehensive inpatient rehabilitation program to improve functional mobility, activities of daily living and self-care. His diagnostic assessment on admission includes medical complexity and generalized debilitation from a non-ST elevation myocardial infarction, ischemic and valvular cardiomyopathy, left ventricular ejection fraction of 15% to 20%, severe aortic stenosis, acute systolic failure, significant pulmonary hypertension; acute renal insufficiency, superimposed on chronic kidney disease, hypertension, hypercholesterolemia, peripheral vascular disease, malnutrition, insomnia and concern in regard to safety. A complete description of his medical condition and history can be found in his medical record. Neuropsychological consultation was requested to provide assistance in the assessment of cognitive and emotional status and to provide recommendations and services. Prior to this most recent admission, he was living independently with his in their home. The patient has 3 children. His son-in-law is Dr. Mitchel Weaver. The patient is a high school graduate. 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 There is no reported history of treatment for anxiety or depression. Prior to the recent medically event, he was driving and maintaining independent activities of daily living. TECHNIQUES UTILIZED: Clinical interview, review of medical records, staff consultation and behavioral observation, mini mental status exam 2 standard version and clock drawing and family interview. EXAMINATION FINDINGS: The patient was alert and cooperative with the assessment. He accurately described the reason for his hospitalization. He does not present with aphasia. There is no report of auditory or visual hallucinations. He denies subjective anxiety or depression. The patient and his do not report difficulty with cognitive functioning. [facility] [address] [place] [address] CONSULTATION Name: ILEANA BERGER Room #: 501-A [facility] IN ..#: [id number] Admission: 11/29/16 Attend Phys: James Stover MD Discharge: Date of : 35 Report #: [id number] His performance on the MMSE 2 brief version resulted in a T score of 38, which is at the 12th percentile and in the mild range of cognitive impairment. The patient was 3/3 for initial registration, 5/5 for orientation to time and 4/[address] He was 1/3 correct for immediate recall of 3 items after a brief time delay and distraction. His performance improved on the MMSE 2 standard version to a raw score of 27 of 30, which is a T score of 51, which is at the 54th percentile and within normal limits. The patient was able to draw a clock and set the hands at a designated time. However, he required 2 trials on clock drawing. He initially had difficulty in placing the numbers on the clock. However, he was able to correct and complete the tasks within normal limits of functioning. His mood appears mildly irritable when increasingly challenged. SUMMARY AND RECOMMENDATIONS: The patient appears to be presenting with subtle difficulty in cognitive functioning and irritability when challenged. While the patient and his deny symptoms of depression or cognitive disorder, his mood, difficulty with sleep and poor appetite could suggest a depressive episode. Consider the use of an antidepressant at bedtime, e.g., Remeron. to assist both with sleep and sleep, appetite and mood. Verbal praise and complements about participation in therapies along with increasing structure in the management of his medications would also be of benefit. Consider a more thorough neuropsychological assesment following discharge to clarify neurocognitive functioning. Thank you very much for allowing me to provide the consultation on this patient. <ELECTRONICALLY SIGNED> By: Arpan Longoria, PhD 12/05/16 1635 1604 0039 Arpan Longoria, PhD /nt
--- NOTE | ~2016-11-29 | H ---
[facility] [place] [address] HISTORY AND PHYSICAL Name: ILEANA BERGER Room #: 513-P ADM IN M.R.#: [id number] Admission: 11/29/16 Attend Phys: James Stover MD Discharge: Date of : 35 Report #: [id number] THIS REPORT FOR: //name// CC: James Pyle Meg DATE OF SERVICE: 11/30/2016 HISTORY OF PRESENT ILLNESS: The patient is an 81-year-old white male originally from [place], [place] with a history of acute systolic heart failure with recent findings in an outside facility of a severely depressed ejection fraction reported at 10%. He has a history of mild coronary artery disease, significant peripheral vascular disease, longstanding COPD and histoplasmosis. He has been followed with physicians in [place], [place] as well as in [place] and also with physicians here in [place] where he has family. He has had a significant weight loss over the last 1-2 years. He had been doing well until he stopped his PPI and suffered gastritis or apparently a GI bleed where he bled down to a hemoglobin of approximately 6.5. This occurred approximately 2 weeks prior to his most recent hospital admission. He was admitted for a couple of days in [place], [place], transfused, discharged home. He had a more recent hemoglobin of 11. Since that time, he has had worsening lower extremity edema, increased shortness of breath, paroxysmal nocturnal dyspnea. EKG showed ST abnormality anteriorly. He had some hypotension. He had decreased reserve with functional mobility. He had been readmitted to [facility], was followed by Cardiology and Pulmonary Medicine closely as well as Nephrology. 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 Echocardiogram revealed a left ventricular ejection fraction of 15-20% with severe aortic stenosis. Creatinine was elevated. It has now decreased from high of 3.0 down to 1.9. Pulmonary Medicine has been following regarding his significant pulmonary hypertension. He has generalized weakness and debilitation along with his multiple medical comorbidities. He was admitted now for acute in-hospital inpatient rehabilitation. PAST MEDICAL HISTORY: Includes coronary artery disease with bilateral superficial femoral artery and renal stent placement in 2012, moderate restenosis in 2014, mild aortic valve stenosis, COPD with histoplasmosis, hypertension, hypercholesterolemia, degenerative arthritis. He has obstructive uropathy with acute renal failure back in 2013. ALLERGIES: Include YESI-DUR. FAMILY HISTORY: Brother from an infarct at 49. Father at 65 from coronary artery disease. 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 Still some intermittent tobacco abuse up [facility] [address] [place] [address] HISTORY AND PHYSICAL Name: ILEANA BERGER Room #: 513-P ADM IN M.R.#: [id number] Admission: 11/29/16 Attend Phys: James Stover MD Discharge: Date of : 35 Report #: [id number] until recently. REVIEW OF SYSTEMS: He has had some restlessness at times. He has had ongoing problems with sleeping, which predate the current hospitalization. He was given some Ambien during his hospitalization prior to rehabilitation and this was discontinued with concern regarding mental status changes. No focal extremity pain complaints were verbalized. There has been ongoing encouragement to try to improve his nutrition. PHYSICAL EXAMINATION: GENERAL: Thin 81-year-old white male in no obvious distress. VITAL SIGNS: Last recorded temperature 97.6, pulse 85, respirations 16, blood pressure 115/65. NEUROLOGIC: The patient is alert. He is pleasant. He follows basic commands without difficulty. HEENT: Appeared to be benign. Nasal prong O2 is in place. He is on 2 liters. He was pleasant and cooperative, did not appear restless this morning. Facies are symmetric. CHEST: Sounded clear to auscultation. CARDIAC: Sounded regular rate and rhythm. ABDOMEN: Thin, bowel sounds positive, nontender. GENITOURINARY AND RECTAL: Deferred. EXTREMITIES: He has functional range of motion of both upper extremities with strength grade 4 to 4-/5. DTRs are trace to 1. His lower extremities, functional range of motion with strength grade 4/5. DTRs are trace to 1. He has been contact guard for basic transfers and is min assist for ambulation at this point. ASSESSMENT: An 81-year-old white male with the following problem list: 1. Medical complexity with generalized debilitation. 2. Non-ST elevation myocardial infarction. 3. 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 4. Left ventricular ejection fraction 15-20%. 5. Severe aortic stenosis. 6. Acute systolic failure. 7. Significant pulmonary hypertension. 8. Acute renal insufficiency superimposed on chronic kidney disease. Creatinine has further decreased from 3 down to 1.9 9. Hypertension. 10. Hypercholesterolemia. 11. Peripheral vascular disease 12. Malnutrition. Encouraging supplements. 13. Insomnia. 14. Safety issues. PLAN: The patient is admitted for acute in-hospital inpatient rehabilitation. [facility] [address] [place] [address] HISTORY AND PHYSICAL Name: ILEANA BERGER Room #: 513-P ADM IN M.R.#: [id number] Admission: 11/29/16 Attend Phys: James Stover MD Discharge: Date of : 35 Report #: [id number] From a postadmission physician evaluation perspective, there are no relevant changes since the preadmission screening. Please see the above review of prior and current medical and functional conditions and comorbidities. Please see the patient's prior and current functional status. As far as risk of complications, the patient has multiple medical comorbidities as noted above. Initial plan of care involves the interdisciplinary acute inpatient rehabilitation program with PT and OT working with him on maximizing his functional independence. I have also asked speech therapy to be involved. Prognosis is reasonably good with estimated length of stay probably at least 7-10 days, pending progress. Potential barriers would include his multiple medical comorbidities and decreased functional status. The patient meets diagnostic criteria for an acute in-hospital inpatient rehabilitation stay. He meets medical necessity criteria and has multiple medical comorbidities as noted above. He does have appropriate tolerance for therapies and has appropriate discharge goals back to the home setting. We will be asking the multiple physician consultants to follow along while he is on rehabilitation. <ELECTRONICALLY SIGNED> By: James Stover MD 12/01/16 1523 [id number] [id number] James Stover MD /nt
[~2016-11-29 10:33] MED LIST changes: +ALLOPURINOL 30300 M2 PO; +APAP500 PO; +ASPIR 8181 MG PO; +ATORVASTATIN CA40 MG PO; +ATROVENT HFA14 GM INH; +BYSTOLIC 5 MG5 M1 PO; +CORLANOR5 MG PO; +DEMADEX20 MG PO; +IRON325 PO; +MIRALAX17 GM PO; +MUCINEX TA600 MG/TA2 PO; +PROTONIX 20 MG20 M1 PO; +ROBITUSSIN100 MG/53 PO; +TRAMADOL 50 MG50 MG PO; +XOPENEX 0.63 MG/3 M1 INH
[2016-11-29 11:15] VITALS: BP 136/66
[2016-11-30 05:11] VITALS: BP 116/65
[2016-11-30 05:29] LABS: CALCIUM 8.6 mg/dL (8.5-10.1); CREATININE 1.9 mg/dL (0.7-1.3); POTASSIUM 3.6 mmol/L (3.5-5.1)
[2016-11-30 05:34] LABS: HEMATOCRIT 33.2 % (42.0-52.0); MCH 22.8 pg (26.0-34.0); MCHC 30.1 g/dL (28.0-37.0); MCV 75.7 fL (80.0-100.0); RBC 4.38 mil/uL (4.50-6.00); RDW 26.6 % (10.5-14.5)
[2016-11-30 16:00] VITALS: BP 125/71
[2016-12-01 05:39] VITALS: BP 123/67
[2016-12-01 08:05] VITALS: BP 128/63
[2016-12-01 08:57] VITALS: BP 124/62
[2016-12-01 16:00] VITALS: BP 108/62
[2016-12-02 05:10] VITALS: BP 127/77
[2016-12-02 05:50] LABS: HEMATOCRIT 34.9 % (42.0-52.0); HEMOGLOBIN 10.4 gm/dL (14.0-18.0); MCH 22.5 pg (26.0-34.0); MCHC 29.7 g/dL (28.0-37.0); MCV 75.8 fL (80.0-100.0); RBC 4.6 mil/uL (4.50-6.00); RDW 26.2 % (10.5-14.5); WBC 11.8 thou/uL (4.0-11.0)
[2016-12-02 05:59] LABS: ALBUMIN 2.5 g/dL (3.4-5.0); CALCIUM 8.4 mg/dL (8.5-10.1); CREATININE 2.1 mg/dL (0.7-1.3); PHOSPHORUS 3.6 mg/dL (2.5-4.9); POTASSIUM 4.1 mmol/L (3.5-5.1)
[2016-12-02 08:00] VITALS: BP 111/47
[2016-12-02 15:37] VITALS: BP 117/57
[2016-12-02 16:46] VITALS: BP 112/48
[2016-12-02 21:13] VITALS: BP 149/74
[2016-12-03 04:02] VITALS: BP 135/69
[2016-12-03 09:00] VITALS: BP 128/56
[2016-12-03 16:00] VITALS: BP 118/48
[2016-12-04 01:09] VITALS: BP 132/76
[2016-12-04 04:36] VITALS: BP 130/68
[2016-12-04 08:00] VITALS: BP 126/64
[2016-12-04 10:27] LABS: HEMATOCRIT 36.4 % (42.0-52.0); HEMOGLOBIN 10.9 gm/dL (14.0-18.0); MCV 76.5 fL (80.0-100.0); RBC 4.76 mil/uL (4.50-6.00); RDW 25.8 % (10.5-14.5); WBC 11.2 thou/uL (4.0-11.0)
[2016-12-04 10:36] LABS: POTASSIUM 4.1 mmol/L (3.5-5.1)
[2016-12-04 16:58] VITALS: BP 112/50
[2016-12-05 06:25] VITALS: BP 125/59
[2016-12-05 15:30] VITALS: BP 106/53
[2016-12-06 05:28] VITALS: BP 121/61
[2016-12-06 08:50] VITALS: BP 122/49
[2016-12-06 15:30] VITALS: BP 119/57
[2016-12-06 21:00] VITALS: BP 126/76
[2016-12-07 04:51] LABS: HEMATOCRIT 33.7 % (42.0-52.0); HEMOGLOBIN 10.1 gm/dL (14.0-18.0); MCH 23.2 pg (26.0-34.0); MCV 77.2 fL (80.0-100.0); RBC 4.36 mil/uL (4.50-6.00); RDW 25.6 % (10.5-14.5); WBC 9.5 thou/uL (4.0-11.0)
[2016-12-07 04:56] LABS: ALBUMIN 2.6 g/dL (3.4-5.0); CALCIUM 8.7 mg/dL (8.5-10.1); CREATININE 2.3 mg/dL (0.7-1.3); PHOSPHORUS 4.9 mg/dL (2.5-4.9)
[2016-12-07 05:19] VITALS: BP 133/72
[2016-12-07 05:20] VITALS: BP 130/74
== END 2016-12-07 14:19 | DRG 947 ==
PROVIDERS: Internal Medicine Cardiovascular Disease; Internal Medicine Nephrology; Physical Medicine & Rehabilitation
DX: R53.81 Other malaise (principal); I21.4 Non-ST elevation (NSTEMI) myocardial infarction; I50.21 Acute systolic (congestive) heart failure; N17.9 Acute kidney failure, unspecified; E46 Unspecified protein-calorie malnutrition; Z68.1 Body mass index [BMI] 19.9 or less, adult; I42.9 Cardiomyopathy, unspecified; I13.0 Hypertensive heart and chronic kidney disease with heart failure and stage 1 through stage 4 chronic kidney disease, or unspecified chronic kidney disease; D64.9 Anemia, unspecified; J44.9 Chronic obstructive pulmonary disease, unspecified; N18.9 Chronic kidney disease, unspecified; I35.0 Nonrheumatic aortic (valve) stenosis; I27.2 Other secondary pulmonary hypertension; E78.00 Pure hypercholesterolemia, unspecified; I73.9 Peripheral vascular disease, unspecified; G47.00 Insomnia, unspecified; I25.10 Atherosclerotic heart disease of native coronary artery without angina pectoris; M19.90 Unspecified osteoarthritis, unspecified site; Z87.891 Personal history of nicotine dependence; Z79.82 Long term (current) use of aspirin; Z95.5 Presence of coronary angioplasty implant and graft; Z82.49 Family history of ischemic heart disease and other diseases of the circulatory system; Z79.899 Other long term (current) drug therapy
CPT/HCPCS: 10112

== ENCOUNTER 2017-07-28 15:08 | Inpatient (IN) | payer OTHER ==
[~2017-07-28] VITALS: Ht 167.6 cm; Wt 56.7 kg
--- NOTE | ~2017-07-28 | O ---
[facility] [place] [place] [address] OPERATIVE REPORT Name: ILEANA BERGER Room #: 237-P [facility] IN M.R.#: [id number] Admission: 07/28/17 Attend Phys: Edenilson Weaver MD, Discharge: 07/30/17 Date of : 35 Report #: [id number] THIS REPORT FOR: //name// CC: EDENILSON Weaver DATE OF SERVICE: 07/29/2017 PREOPERATIVE DIAGNOSES: Right internal carotid artery stenosis, greater than 90%, asymptomatic. FINAL DIAGNOSES: Right internal carotid artery stenosis, greater than 90%, asymptomatic. OPERATIVE PROCEDURE PERFORMED: Right internal carotid endarterectomy. SURGEON: Nakul Arias MD. RETURN TO SERVICE INSPECTOR: [facility] ANESTHESIA: General. OPERATIVE INDICATIONS: The patient is an 82-year-old gentleman with known history of hypertension, hyperlipidemia and some atherosclerosis involving the radial artery, for which he has undergone stents in the past. He has a known carotid stenosis, which has been followed. The patient has been asymptomatic recently, but underwent a carotid duplex imaging yesterday showing a high grade stenosis greater than 90%. He subsequently underwent angiography confirming greater than 90% stenosis in the mid right internal carotid artery. He is admitted at this time and brought to the operating room now for carotid endarterectomy. OPERATIVE SUMMARY: The patient was brought to the operating room, placed on the OR table in supine position. After anesthesia was induced via the general endotracheal route and monitoring lines have been positioned, the patient was prepped and draped in sterile fashion with chlorhexidine. We made an oblique incision in the right neck medial to the sternocleidomastoid muscle. Dissection was carried down medially. The facial vein was ligated with silk suture and divided. We exposed the contents of the carotid sheath, dissected free the common internal and external carotid arteries away from surrounding tissue. We identified the vagus, hypoglossal and ansa cervicalis nerves, and care was taken not to injure them during this procedure. I encircled the external carotid artery with a Silastic vessel loop. 15,000 units of intravenous heparin were given. The internal carotid artery was clamped, and the common carotid artery was clamped. An arteriotomy was made in the common carotid artery and extended up into the internal carotid artery past the obstruction. A 14-Irish shunt was [address] [address] OPERATIVE REPORT Name: ILEANA BERGER Room #: 237-P [facility] IN M.R.#: [id number] Admission: 07/28/17 Attend Phys: Edenilson Weaver MD, Discharge: 07/30/17 Date of : 35 Report #: [id number] placed in the internal carotid artery, it was backbled and then placed in the common carotid artery to provide blood flow to the brain during the remainder of the case. The plaque was then dissected from the vessel wall and was amputated proximally. Distally, a small shelf was noted from the intima and several 7-0 Prolene tacking sutures were placed. An eversion endarterectomy was performed of the external carotid artery. All loose prongs were debrided from the vessel floor. Once this was satisfactory, we closed the arteriotomy with a running 6-0 Prolene suture. A patch was not employed. Prior to completing this closure, the shunt was removed. Clamps were placed on the internal carotid artery and the common carotid artery. Prior to completing the closure, the site was irrigated with heparinized saline solution and was flushed both retrograde and antegrade and was de-aired by releasing the Silastic vessel loop on the external carotid artery. After completing closure, the common clamp was removed and then finally the internal clamp was removed. Protamine was given to reverse the heparin, and once satisfactory hemostasis was achieved, the wound was closed in multiple layers with absorbable suture. The procedure was completed. The patient was taken to postanesthesia care unit in stable condition. Operative blood loss was 100 mL. No intraoperative complications noted. Neurologic exam in the recovery room showed no evidence of neurologic deficit. There was no EEG monitoring performed during this case. <ELECTRONICALLY SIGNED> By: Nakul Arias MD 08/07/17 1149 1239 1334 Nakul Arias MD /nt
--- NOTE | ~2017-07-28 | D ---
[facility] [place] [place] [address] DISCHARGE SUMMARY Name: ILEANA BERGER Room #: 237-P [facility] IN M.R.#: [id number] Admission: 07/28/17 Attend Phys: Edenilson Weaver MD, Discharge: 07/30/17 Date of : 35 Report #: [id number] THIS REPORT FOR: //name// CC: [facility]SE: The patient is an 82-year-old male admitted with a 99% right internal carotid artery stenosis, which was noted from an ultrasound performed at [facility]. He was initially evaluated there for some severe and labile hypertension, found to have significant renal artery stenosis and the right renal artery was successfully stented. His blood pressure controlled and renal function have markedly improved since that stent, admitted here then somewhat urgently for an urgent right carotid endarterectomy. Dr. Arias performed this. He has done well. He is up in the bed. He is hemodynamically stable. Creatinine is 1.9. This is slightly better than his baseline. He had moderate 3-vessel coronary disease, underlying COPD and a long history of histoplasmosis with chronic lung disease, chronic kidney disease which has remained stable, DJD and some anorexia, but has improved. He is hemodynamically stable. His laboratory work this morning, sodium 138, potassium 4.4, BUN 29, creatinine 1.9. Liver function tests were also within normal. Alkaline phosphatase was 121. H and H is 9.8 and 29.1, so he had some acute blood loss secondary to the surgery. He is on iron at home. Platelets are 119. He will be discharged on Plavix only for 2 weeks because of the renal stent and then go to baby aspirin, Corlanor 5 mg p.o. b.i.d., Bystolic 5 mg q. day. We will get him on a statin, Lipitor 40. Low-fat, low-sodium, cholesterol diet, restricted from significant straining or right upper extremity usage here for a week or so secondary to the right carotid endarterectomy. After 2 weeks of Plavix, we will switch to baby aspirin and continue the PPI as he does have a history of a GI bleed. Restart his iron. DISCHARGE DIAGNOSES: 1. Critical right internal carotid artery stenosis status post carotid endarterectomy. 2. Status post right renal stent for severe hypertension secondary to renal artery stenosis, markedly improved post-stent on the right renal artery and re-dilatation of a left renal stent. 3. Moderate 3-vessel coronary disease. 4. Hypertension. 5. Hypercholesterolemia. 6. Chronic obstructive pulmonary disease with history of histoplasmosis. 7. Chronic kidney disease, stable. Follow up with primary care up in [place], [place], Dr. Almanza. Chemistry and CBC should be obtained next week. We will follow up renal Doppler, carotid Doppler and myself in 3 months here at the [facility] office. [address] [address] DISCHARGE SUMMARY Name: ARMANDILEANA SALMERON Room #: 237-P [facility] IN M.R.#: [id number] Admission: 07/28/17 Attend Phys: Edenilson Weaver MD, Discharge: 07/30/17 Date of : 35 Report #: [id number] Thank you for allowing us to assist in the care of this patient. <ELECTRONICALLY SIGNED> By: Edenilson Weaver MD, FAC 08/13/17 0800 [phone] Edenilson Weaver MD, FAC /nt
--- NOTE | ~2017-07-28 | S ---
[facility] [place] [address] SURGICAL PATH RPT PROCEDURE Name: ABA BERGER Room #: 237-P DIS IN M.R.#: [id number] Admission: 07/28/17 Date of : 35 Discharge: 07/30/17 Report #: [id number] Path Case #: [id number] PATHOLOGY REPORT COLLECTION DATE: 07/29/2017 RECEIVED DATE: 07/29/2017 SUBMITTING PHYS: Dr. Nakul Arias OTHER PHYS: Dr. Edenilson Weaver SPECIMEN(S) RECEIVED: A.Right carotid artery plaque * * * * * * * * * * * * FINAL DIAGNOSIS: Arterial plaque, right carotid, endarterectomy: - Calcified atheromatous plaque. (SKM:rosalio; 07/30/2017) PATHOLOGIST: Brayan Avalos M.D. REPORT ELECTRONICALLY SIGNED BY: Brayan Avalos M.D. DATE/TIME: 07/30/2017 14:26 * * * * * * * * * * * * GROSS PATHOLOGY: The specimen is received in formalin, labeled "Aba Berger right carotid artery," and consists of a segment of rubbery to calcified soft tissue measuring 2.5 x 1.1 x 0.8 cm. German Teacher sections are submitted in cassette A1 following decalcification. (SDY; 07/29/2017) CLINICAL HISTORY: Right carotid stenosis INITIAL CPT CODE(S): A; 80419, 12148 Professional services performed by [facility] at [facility] [address], [place] [address] Technical services performed by [facility] at [address] [place] [address], [address], [place] [address]. [facility] [address] [place] [address] SURGICAL PATH RPT PROCEDURE Name: ABA BERGER Room #: 237-P [facility] IN Avni.R.#: [id number] Admission: 07/28/17 Date of : 35 Discharge: 07/30/17 Report #: [id number] Path Case #: [id number] [address] PHONE: [phone] DIRECTOR: Andrea Banuelos M.D. * * * END OF REPORT * * *
[2017-07-28 17:40] VITALS: BP 152/71
[2017-07-28 18:54] LABS: HEMATOCRIT 40.2 % (42.0-52.0); HEMOGLOBIN 13.3 gm/dL (14.0-18.0); MCH 29.9 pg (26.0-34.0); MCV 90.6 fL (80.0-100.0); RBC 4.43 mil/uL (4.50-6.00); RDW 12.3 % (10.5-14.5)
[2017-07-28 19:08] LABS: ALBUMIN 3.3 g/dL (3.4-5.0); CALCIUM 9.1 mg/dL (8.5-10.1); CREATININE 1.8 mg/dL (0.7-1.3); POTASSIUM 4.7 mmol/L (3.5-5.1); TOTAL BILIRUBIN 0.4 mg/dL (<0.1-1.0); TOTAL PROTEIN 6.9 g/dL (6.4-8.2)
[2017-07-28 19:56] VITALS: BP 148/66
[2017-07-28] MEDS ORDERED: ALDACTONE25 MG PO (22:34)
[2017-07-28 23:17] VITALS: BP 133/69
[2017-07-29 03:31] LABS: ABSOLUTE NEUTROPHILS 6.7 thou/uL (1.4-8.2); BASOPHILS 0.5 % (0.0-2.0); EOSINOPHILS 3.4 % (0.0-3.0); HEMATOCRIT 39.7 % (42.0-52.0); HEMOGLOBIN 13.2 gm/dL (14.0-18.0); LYMPHOCYTES 12.2 % (24.0-44.0); MCHC 33.2 g/dL (28.0-37.0); MCV 90.5 fL (80.0-100.0); MONOCYTES 11.6 % (1.0-8.0); PLATELET COUNT 179 thou/uL (150-400); POLYS 72.3 % (36.0-66.0); RBC 4.39 mil/uL (4.50-6.00); RDW 12.5 % (10.5-14.5); WBC 9.3 thou/uL (4.0-11.0)
[2017-07-29 03:36] VITALS: BP 142/72
[2017-07-29 03:43] LABS: CALCIUM 9.1 mg/dL (8.5-10.1); CREATININE 1.7 mg/dL (0.7-1.3); POTASSIUM 4.4 mmol/L (3.5-5.1)
[2017-07-29 12:03] VITALS: BP 80/41
[2017-07-29 12:29] VITALS: BP 78/39
[2017-07-29 12:32] VITALS: BP 83/41
[2017-07-29 14:00] VITALS: BP 116/43
[2017-07-29 20:00] VITALS: BP 135/50
[2017-07-30] VITALS (11 sets, daily range): BP systolic 90–125; BP diastolic 49–82
[2017-07-30 04:01] LABS: CALCIUM 7.6 mg/dL (8.5-10.1); CREATININE 1.9 mg/dL (0.7-1.3); POTASSIUM 4.4 mmol/L (3.5-5.1)
[2017-07-30 05:40] LABS: HEMATOCRIT 29.1 % (42.0-52.0); MCH 30.6 pg (26.0-34.0); MCHC 33.8 g/dL (28.0-37.0); MCV 90.5 fL (80.0-100.0); RBC 3.22 mil/uL (4.50-6.00); RDW 12.5 % (10.5-14.5); WBC 9.4 thou/uL (4.0-11.0)
[2017-07-30 05:42] LABS: HEMOGLOBIN 9.8 gm/dL (14.0-18.0)
[2017-07-30] MEDS ORDERED: CORLANOR5 MG PO (08:00)
[2017-07-30] MEDS ORDERED: CLOPIDOGREL75 MG PO (08:00)
== END 2017-07-30 13:20 | disposition home or self-care (01) | DRG 37 ==
LOC: 2N 15:08 → TBA 07-29 09:22 → ICU 07-29 12:20
PROVIDERS: Internal Medicine Cardiovascular Disease; Nurse Practitioner Gerontology
PROC: 03CK0ZZ Extirpation of Matter from Right Internal Carotid Artery, Open Approach (ICD-10-PCS; principal; 2017-07-29)
DX: I65.21 Occlusion and stenosis of right carotid artery (principal); E43 Unspecified severe protein-calorie malnutrition; I70.1 Atherosclerosis of renal artery; E78.00 Pure hypercholesterolemia, unspecified; J44.9 Chronic obstructive pulmonary disease, unspecified; N18.9 Chronic kidney disease, unspecified; I25.10 Atherosclerotic heart disease of native coronary artery without angina pectoris; I12.9 Hypertensive chronic kidney disease with stage 1 through stage 4 chronic kidney disease, or unspecified chronic kidney disease; I73.9 Peripheral vascular disease, unspecified; F17.210 Nicotine dependence, cigarettes, uncomplicated; M19.90 Unspecified osteoarthritis, unspecified site; Z82.49 Family history of ischemic heart disease and other diseases of the circulatory system; Z88.1 Allergy status to other antibiotic agents; Z82.5 Family history of asthma and other chronic lower respiratory diseases
CPT/HCPCS: 10078; 10081; 50010; 50101; 50386; 50417; 50455; 51301; 56524; 56526; 56528; 56534; 56639; 62110; 62900; 65020; 65040; 65090; 70005